=== PATIENT | female | born 1965 | race Caucasian/White ===

== ENCOUNTER → 2018-07-31 08:57 | Outpatient (CLI) | payer BC, SELFPAY ==
--- NOTE | 2018-07-30 19:29 | PCM.HP.BLA ---
History and Physical Date of Admission: 07/31/18 HISTORY AND PHYSICAL - BREAST COMPLAINT ? Nirali Cifuentes 1965 ? ? REFERRING PHYSICIAN: ??David Reza MD ? CHIEF COMPLAINT: ??Right breast microcalcifications ? HPI: The patient is a 52 year old female with a continued finding of an abnormal mammogram. ?The patient had a mammogram ?on July 10, 2018 which demonstrated: ? IMPRESSION: SUSPICIOUS FINDING - BIOPSY SHOULD BE CONSIDERED The multiple regional heterogeneous pleomorphic calcifications in the right breast are suspicious of malignancy. ?A stereotactic biopsy is recommended. The patient has a follow up surgical appointment with Dr. Vega on 07/16/18. Jeffry Guerrier M.D. ? Last year, the patient underwent mammogram of her right breast on July 04, 2017. ?This demonstrated: ? IMPRESSION: SUSPICIOUS FINDING - BIOPSY SHOULD BE CONSIDERED The regional pleomorphic calcifications in the right breast are suspicious of malignancy. ?A stereotactic biopsy is recommended. Luci chapa/chelle:07/04/2017 10:24:52 Food Beverage Attendant: Leda ABRAHAM(Ana)(Magno), [facility] letter sent: Abnormal Mammogram BI-RADS: 4 Suspicious finding - Biopsy should be considered Elevator Supervisor: Chelle Transcribe Date/Time: July ?9:55A Dictated by: LUCI CHEN MD ? The patient was seen for similar concerns 2 years previously. ?At that time, she felt she had undergone enough procedures and did not want a biopsy performed. ? ? The patient underwent mammogram on June 22, 2016 ? IMPRESSION: SUSPICIOUS OF MALIGNANCY The regional pleomorphic calcifications in the right breast are suspicious of malignancy. ?An ultrasound guided biopsy is recommended. Luci chapa/chelle:06/22/2016 09:56:49 Food Beverage Attendant: Millie SAM)(Magno), [facility] letter sent: Abnormal Mammogram BI-RADS: 4 Suspicious abnormality Elevator Supervisor: Chelle Transcribe Date/Time: Jun 22 2016 ?9:21A Dictated by: LUCI CHEN MD This examination was interpreted and the report reviewed and electronically signed by: LUCI CHEN MD on Jun 22 2016 ?9:56AM ?EST Results-Findings * * *Final Report* * * DATE OF EXAM: Jun 22 2016 ?9:50AM ? WRW ??[id number] ?- ?LINUS DIG DIAG CAD UNI ?- RIGHT / PROCEDURE REASON: CALL BACK RGITH ?BREAST /ABNORMAL MAMMOGRAM ? * * * * Physician Interpretation * * * * RESULT: #[id number] - LINUS DIG DIAG CAD UNI UNILATERAL RIGHT DIGITAL DIAGNOSTIC MAMMOGRAM WITH CAD: 06/22/2016 HISTORY: Call Back Right /Abnormal Mammogram. RESULT: TECHNIQUE: ?The study was acquired using full field digital technology and interpreted from soft copy. Current study was also evaluated with a Computer Aided Detection (CAD). Comparison is made to exams dated: ?06/14/2016 mammogram, 06/22/2015 mammogram - [facility], 10/15/2014 mammogram, 10/15/2014 mammogram - [facility], 09/17/2014 mammogram, and 09/10/2014 mammogram - [facility]. The tissue of the right breast is heterogeneously dense. This may lower the sensitivity of mammography. There are regional pleomorphic calcifications in the right breast superior lateral quadrant middle depth. ?These are not significantly changed. No other significant masses or calcifications are seen in the breast. ? Last year-the patient had a mammogram on June 22, 2015 which demonstrated: ? IMPRESSION: SUSPICIOUS OF MALIGNANCY The multiple calcifications in the right breast are at an intermediate suspicion for malignancy. SUMMARY: The results of the imaging and recommendations were discussed with the patient. Patient scheduled for surgical consult with Dr. Vega. Cayetano kaufman/chelle:06/22/2015 10:24:17 Food Beverage Attendant: Yue ABRAHAM(Ana)(Magno), [facility] letter sent: Abnormal Mammogram BI-RADS: 4b Suspicious abnormality - intermediate suspicion of malignancy Elevator Supervisor: PSC Transcribe Date/Time: Jun 22 2015 10:24A Dictated by : CAYETANO CISNEROS DO This examination was interpreted and the report reviewed and electronically signed by: CAYETANO CISNEROS DO On Jun 22 2015 10:24AM ? ? Nirali is a patient I am following for a prior history of left sided breast cancer. ? Nirali presented with a finding of an abnormal mammogram. ?The patient had a mammogram with ultrasound on September 10 which demonstrated: ? IMPRESSION: HIGHLY SUGGESTIVE OF MALIGNANCY - FOLLOW-UP RECOMMENDED The 0.7 cm x 1 cm x 0.6 cm irregular mass in the left breast is highly suggestive of malignancy. An ultrasound guided biopsy is recommended. Luci chapa/chelle:09/10/2014 11:55:01 Food Beverage Attendant: Leda SAM)(Magno), [facility] letter sent: Abnormal Mammogram BI-RADS: 5 Highly suggestive of malignancy Ultrasound BI-RADS: 5 Highly suggestive of malignancy . ? ? ? The patient denies a history of breast masses. ?She does not ?perform a self breast exam routinely. ?She notes no skin changes. ?She denies nipple discharge. ?She notes no axillary masses. ?She notes no family history of breast problems. ?She notes no significant breast trauma or breast difficulties in the past. ? I thought the abnormality that I visualized was in a slightly different more medial location than what was noted on ultrasound in the radiology department. ?I therefore had her return the following day for ultrasound-guided biopsy in the department area I performed an ultrasound-guided core biopsy of the left breast on September 17, 2014. ? ? Pathology returned as: Invasive ductal carcinoma, estrogen receptor positive, progesterone receptor positive ? The patient notes moderate localized bruising since the procedure. ? She underwent an MRI of her breasts. ?This demonstrated: ? IMPRESSION: KNOWN BIOPSY PROVEN MALIGNANCY 1.4 cm biopsy-proven neoplasm in the left breast just medial and inferior to the nipple. An additional concerning area for neoplasm is seen in the lower inner quadrant of the left breast. There is some architectural distortion seen in this region on the MLO view of the left mammogram. I would recommend either biopsy of this region or wide margins during lumpectomy, assuming mastectomy is not in the plans. Pericardial recess or cyst. ? The patient was referred for second look ultrasound versus MRI and planned biopsy of the additional area of concern in the lower inner quadrant of the left breast. ?She underwent these evaluations on October 15. ? She underwent follow-up mammogram and ultrasound. ?The report from [place] demonstrated: ? IMPRESSION: SUSPICIOUS OF MALIGNANCY Biopsy will be performed for the suspicious mass at left 7:00 3CMFN demonstrated on today's second look ultrasound exam. Note that on today's limited mammogram images there are nonspecific regional calcifications in the upper outer left breast. These were described in the 09/10/2014 diagnostic mammogram with recommendation for left breast stereotactic biopsy for evaluation of the calcifications. For comparison, review of the right breast was performed (screening mammogram dated 09/01/2014), and similar appearing regional calcifications are noted on the right. In summary, given the now known malignancy in the left breast, if the patient desires breast conservation then a left breast stereotactic biopsy would be recommended. As there are similar appearing calcifications in the right breast, and with known contralateral malignancy, right breast stereotactic biopsy would also be recommended. Findings/images were reviewed with the patient at the time of her biopsy Today. ? Pathology demonstrated: ? FINAL DIAGNOSIS Breast, Left, 7 o'clock, 3 cm from Nipple, Ultrasound-Guided Core Biopsy (A): - Invasive ductal carcinoma, nuclear grade 1. - Ductal carcinoma in situ (DCIS), low grade, cribriform type with associated calcifications. COMMENT Results of ancillary immunohistochemical testing (ER/WA/Her-2) will follow in an addendum. ? ? At that?point in time, the patient is somewhat confused and?overwhelmed by the variety of findings and the multiple studies she has undergone. ?We discussed the concern of the microcalcifications in her left and right breasts. ?From my standpoint, the initial report did not recommend right stereotactic biopsy for those microcalcifications which to me seemed somewhat more vague. ?Additionally, MRI did not demonstrate areas of abnormality at either site of those right or left microcalcifications. ?If we were considering lumpectomy of the left breast, I would recommend stereotactic biopsy of the left breast. ?The patient is planning for left-sided mastectomy. ?Right breast microcalcifications again did not appear significantly clustered to me. ?We discussed biopsy versus observation versus referral for bilateral mastectomy. ? We extensively discussed her diagnosis and at the last visit discussed her surgical options including breast conservation surgical procedures, mastectomy without reconstruction and mastectomy with reconstruction. ?The patient has elected to undergo a left side mastectomy with sentinel lymph node biopsy with possible axillary dissection. ?She does not wish to undergo right sided biopsy or contralateral mastectomy at this time. ? ?I performed a left mastectomy with sentinel lymph node biopsy on October 30. ?The pathology demonstrated negative frozen sections on the sentinel lymph node biopsy. The pathology demonstrated invasive well differentiated ductal carcinoma. The tumor's greatest dimension was 1.5 x 1.5 x 1.2cm and 1.0 x 0.5 x 0.5 cm. Surgical margins were free of disease. 2 out of 2 lymph nodes were negative for metastatic disease. The estrogen receptors were positive, the progesterone receptors were positive, the Gya4Bhq receptors were positive. Pathologic stage was T1 N0 M0.?? ? Again, for the right breast, we discussed with the patient observation versus biopsy. ?The fact that her MRI demonstrated no abnormalities in the right side and overall her mammogram seems somewhat stable, the patient again would prefer not to undergo biopsy. ? ? ? PAST?MEDICAL?HISTORY PAST MEDICAL HISTORY Diagnosis Date ? Breast cancer (HCC) ? ? left breast ? Closed fracture of navicular (scaphoid) bone of wrist 1999 ? Wrist fracture ORIF left wrist ? H/O tubal ligation 1993 ? History of total hip replacement 2010 ? left ? PAST?SURGICAL?HISTORY PAST SURGICAL HISTORY Procedure Laterality Date ? MASTECTOMY, PARTIAL ? 10/30/14 ? Left - with neg SLNBx ? REPAIR WRIST FRACTURE ? 1999 ? TOTAL HIP REPLACEMENT ? 2009? ? left hip ? TUBAL LIGATION HX ? 1993 ? ? ? CURRENT?MEDICATIONS ? Current Outpatient Medications: MULTI-VITAMIN ORAL Take by mouth. Disp: Rfl: tamoxifen (NOLVADEX) 20 mg tablet Take 1 tablet (20 mg) by mouth once daily. Disp: 30 tablet Rfl: 11 ergocalciferol, vitamin D2, (VITAMIN D) 50,000 unit capsule TAKE ONE CAPSULE BY MOUTH ONCE A WEEK Disp: 12 capsule Rfl: 3 cyanocobalamin (VITAMIN B-12) 1,000 mcg tab Take 1,000 mcg by mouth once daily. Disp: Rfl: ? No current facility-administered medications for this visit. ? ALLERGIES: Lactose; Seasonal Allergies ? PERSONAL HISTORY: SOCIAL?HISTORY Social History ??Socioeconomic History ?Marital status: ?Spouse name: Ayush ?Number of children: 2 ?Years of education: Not on file ?Highest education level: Not on file ??Social Needs ?Financial resource strain: Not on file ?Food insecurity - worry: Not on file ?Food insecurity - inability: Not on file ?Transportation needs - medical: Not on file ?Transportation needs - non-medical: Not on file ??Occupational History ?Not on file ??Tobacco Use ?Smoking status: Current Every Day Smoker ?Packs/day: 1.50 ?Years: 35.00 ?Pack years: 52.5 ?Types: Cigarettes ?Start date: 06/29/1981 ?Smokeless tobacco: Never Used ??Substance and Sexual Activity ?Alcohol use: Yes ?Comment: rare ?Drug use: No ?Sexual activity: Yes ?Partners: Male ? control/protection: Tubal Ligation ??Other Topics ?Concerns: ?Not on file ??Social History Narrative ?Not on file ?? ? FAMILY HISTORY: FAMILY?HISTORY FAMILY HISTORY Problem Relation Age of Onset ? Breast Cancer Mother 60 ? Hypertension Mother ? ? Allergies Mother ? ? Diabetes Mother ? ? Heart Father ? ? Lipids Father ? ? Allergies Father ? ? Colon Cancer Maternal Grandmother ?dx 80's ? Breast Cancer Maternal Aunt ?dx 60's ? Colon Cancer Maternal Uncle ?dx 60's ? ? REVIEW OF SYMPTOMS: ??The review of systems data was entered by the nurse and reviewed by me ? There are no exam notes on file for this visit. ? ? PHYSICAL EXAMINATION: ? General: ?The patient is 52 year old female, well nourished, well hydrated in no acute distress. ?The patient is oriented to time, place, and person. ? VITALS: Blood pressure 138/78, pulse 96, last menstrual period 06/18/2014.?There is no height or weight on file to calculate BMI.? ? HEENT: ?Normal cephalic, ataumatic, pupils are equally round, sclera are anicteric, mucous membranes are moist, oropharynx is clear. ?Neck has no masses, asymmetry or lymphadenopathy. ?Thyroid is unremarkable. ? Respiratory: ?Clear to auscultation and percussion. ?Normal respiratory excursion and pattern. ? Cardiac: ?Examination is regular rate and rhythm. ? Abdominal exam: ?Soft, nontender, ?with no palpable masses. ?No hepatosplenomegaly. ?No palpable hernias. ? Rectal exam: ?exam deferred Extremities: ?no clubbing, cyanosis or edema. ?No adenopathy. ? Breast: ?Visual inspection reveals no retractions, nipple inversion, or skin changes. ?Palpation of the right breast reveals no dominant or suspicious masses. ?The left breast is surgically absent. ?Axillary exam demonstrates no suspicious masses in either the left or right axilla. ?There is no nipple discharge expressed from either the left or right breast. ? LABORATORY VALUES: As Noted ? RADIOLOGIC STUDIES: ?As Noted ? Assessment ? IMPRESSION: Persistent right breast microcalcifications ? PLAN: ?I plan to perform a stereotactic biopsy of the right breast. ?The planned surgical procedure was discussed extensively with the patient. ?The risks, benefits, anticipated outcomes and possible complications were mentioned. ?My staff has also explained the procedure in understandable terms and the patient was given the option to take printed material concerning the planned procedure. ?The patient had the opportunity to ask questions concerning the planned procedure. ?The patient freely consents to the planned procedure. ? The patient does agree to have stereotactic biopsy at this time. ? Diagnoses: (R92.8) Abnormal finding on breast imaging ?(primary encounter diagnosis) ? My findings have been communicated to Dr. Reza via shared medical record. ?This note will be forwarded to Dr. Marcin Ny MD. ? Return to Clinic: The patient is instructed to follow-up with me after the testing has been completed. ? Ramiro Vega MD
--- NOTE | 2018-07-31 | IMM_PTH ---
PATIENT: PHOEBE ODELL LOC: [facility] U#:[id number] AGE/SX: 59/F ROOM: RE07/31/[address]: Dr. Ramiro Vega MD : 1965 BED: DIS: SPEC #: [id number] RECD: 08/01/18 10:37 STATUS: DIVYA REQ #: [id number] DENG: 07/31/18 00:[address]: Ramiro Vega DEPT: IMMUNOHISTOCHEMISTRY RECD BY: Chitra Hooker ENTERED: 08/01/18 10:42 SP TYPE: IMMUNO OTHR DR: Dr. Marcin Ny MD Tissues: Right breast, NOS Procedures: SMA (add) CALPONIN-1 (add) Pankeratin (initial) P40 (add) PHYSICIAN & INSTITUTION [place] [id number] SPECIMEN INFORMATION: Tissue Source: Right breast Clinical Info: Right breast calcifications upper outer middle depth Specimen Number: [id number] #1 CPT code: 78060, 25015 x3 METHODOLOGY: Deparaffinized sections of prefer/formalin-fixed tissue or PAP/DQ stained slides are incubated with monoclonal/polyclonal antibodies/oligonucleotide probes. Localization is made via biotin free immunoperoxidase method. Appropriate controls are performed and reacted as expected. Results on target cell population are indicated in the following table: RESULTS: ANTIBODY / CLONE RESULT P40 (BC28) positive Actin (1A4) positive Calponin-1 (OH688H) positive AE1-3 (AE1/AE3/PCK26) positive These tests were developed and their performance characteristics determined by [facility]. They may not have been cleared or approved by the U.S. Food and Drug Administration. The FDA has determined that such clearance or approval is not necessary. INTERPRETATION: Right breast, stereotactic core biopsy: Consistent with sclerosing adenosis. AM:sandeep 08/02/18
--- NOTE | 2018-07-31 09:30 | BRBX_PTH ---
PATIENT: PHOEBE ODELL LOC: [facility] U#:[id number] AGE/SX: 59/F ROOM: RE07/31/[address]: Dr. Ramiro Vega MD : 1965 BED: DIS: SPEC #: [id number] RECD: 07/31/18 10:11 STATUS: DIVYA ASHTYN #: [id number] DENG: 07/31/18 09:[address]: Ramiro Vega DEPT: SURGICAL PATHOLOGY RECD BY: Lam Caldwell ENTERED: 07/31/18 10:53 SP TYPE: BREAST BX OTHR DR: Dr. Marcin Ny MD Tissues: Right breast, NOS Procedures: Surgery Specimen Level IV HEADER OPERATION: Right breast stereotactic biopsy PRE-OP DIAGNOSIS: Right breast calcifications upper outer middle depth TISSUE SUBMITTED: Right breast core tissue FIXATION TIME: 10 hours MICROSCOPIC DIAGNOSIS Right upper outer middle breast, stereotactic needle core biopsy: Sclerosing adenosis and associated microcalcifications. Fibrocystic change with associated microcalcifications. Focal intraductal hyperplasia without atypia. No evidence of malignancy. AM:sandeep 08/01/18 COMMENT Immunohistochemistry ([id number]) supports the above diagnosis. MICROSCOPIC DESCRIPTION Slides are reviewed. GROSS DESCRIPTION Received in fixative is one container labeled with the patient's name and designated right breast core tissue. The specimen consists of multiple irregular fragments of alberto-yellow to pink soft tissue that in aggregate measure 2.5 x 2.5 x 0.5 cm. The specimen is submitted in six cassettes. / CE:sandeep 07/31/18 TC:5 CPT: 96179
--- NOTE | 2018-07-31 10:50 | PCM.OPRPT ---
Report of Operation Date of Procedure: 07/31/18 Pre-Operative Diagnosis: right breast microcalcifications Post-Operative Diagnosis: right breast microcalcifications-successful stereotactic biopsy Surgery/Procedure Performed:: right breast stereotactic biopsy with vacuum-assisted core needle biopsy-specimen radiograph and gel marker clip placement rubber press operator: None Type of Anesthesia:: Local Specimen's removed: right breast Description of Procedure: The patient was brought to the stereotactic suite and informed of the plan course of events. The right breast was positioned in the CC approach on the Horner stereotactic table. Mammographic image demonstrated the area of abnormality to be located in the center of the radiograph. Stereotactic images were then obtained which demonstrated good positioning of the abnormality for biopsy with good stroke [place]ano parameters. The breast was cleaned with Betadine area did one percent lidocaine was used to anesthetize the skin and a small stab incision made. An 8-gauge mammotome needle was placed into the pre-fire position. Stereotactic images demonstrated good positioning around the planned biopsy site. Local anesthetic injected deeply in the breast. The needle was deployed. Post deployment images demonstrated good positioning of the planned biopsy site. Multiple vacuum-assisted samples were obtained and otsolg-rpo-kaqis fashion. Specimen radiograph demonstrated micro-calcifications in the sample. A gel marker clip was deployed. Post biopsy images demonstrated good position of the clip relative the biopsy cavity. The breast was removed from compression. Steri-Strips and a dressing applied. Post procedure mammogram images were obtained.
== END ==
LOC: BIRAD 08:57
PROVIDERS: Family Provider Family Medicine; PCP Family Medicine; Referring Provider Surgery; Visit Provider Surgery
DX: N60.21 Fibroadenosis of right breast (principal); N60.91 Unspecified benign mammary dysplasia of right breast; F17.210 Nicotine dependence, cigarettes, uncomplicated; Z96.642 Presence of left artificial hip joint; Z85.3 Personal history of malignant neoplasm of breast; Z90.12 Acquired absence of left breast and nipple; Z98.51 Tubal ligation status
CPT/HCPCS: 19081; 88305; 88341; 88342; J7050; A4648

== ENCOUNTER 2023-05-28 11:04 | Emergency (ER) | payer BC, SELFPAY ==
[2023-05-28] VITALS (18 sets, daily range): BP systolic 74–115; BP diastolic 50–68; PULSE 62–97; RESP 14–18; TEMP 37.1–37.9; O2SAT 94–100; BMI 18.3
--- NOTE | 2023-05-28 11:55 | CT_ITS ---
STUDY: CT ABDOMEN AND PELVIS WITH CONTRAST REASON FOR EXAM: Female, 57 years old. 4 day history of right lower quadrant pain. Diarrhea. RADIATION DOSAGE (If Supplied By Facility): CTDIvol = ( 10.61 ) mGy, DLP = ( 211.21 ) mGycm TECHNIQUE: Transaxial images were obtained from the dome of the diaphragm to the symphysis pubis without oral contrast. IV 100mL Isovue-300 was administered. Sagittal and coronal images were reconstructed. Individualized dose optimization techniques were used for this CT. COMPARISON: None. FINDINGS: The visualized lung bases are unremarkable. The visualized portions of the heart are within normal limits. Normal liver. There is a solitary gallstone. This measures 6.4 mm in diameter. Normal spleen. Normal pancreas. Normal bilateral adrenal glands. Punctate calculus in the lower pole calyx of the right kidney. 1 cm cyst in the mid lateral aspect of the right kidney. Normal left kidney. Normal visualized stomach. Normal small intestine. Normal colon. The appendix is visualized and appears normal. There is diffuse atherosclerotic calcification of the abdominal aorta and its major visceral branches, without a demonstrated aneurysm. Endoluminal stent graft is seen in the distal abdominal aorta and the proximal portions of both common iliac arteries. Normal inferior vena cava. Normal retroperitoneum. Normal urinary bladder. Normal abdominal wall. Mild disc space narrowing at the L5-S1 level with spondylosis. Beam hardening artifact in the pelvis due to the prosthetic left hip limits evaluation of the pelvic structures. CT/Abdomen/Pelvis W IV Cont ONLY IMPRESSION: Punctate calculus in the lower pole calyx of the right kidney. Small right renal cyst. Solitary gallstone. Prior endoluminal stent grafting of the distal abdominal aorta and the lateral common iliac arteries. Electronically Signed: Dalton Braun MD at 13:22 EDT ,
--- NOTE | 2023-05-28 11:55 | ED.VIS.GI ---
HPI HPI - GI History of Present Illness Chief Complaint: Abd Pain Narrative Narrative: 57-year-old female presents with her boyfriend because of right lower quadrant abdominal pain and diarrhea that she has had for 5 days. She states that she has not had fever or chills, but started having diarrhea approximately 5 days ago. Whenever she would eat or drink anything, she would have an episode of diarrhea. While she might be slightly nauseated at times, she has not had any vomiting. Water was the only thing that would stay in her, but when she would eat or drink other liquids including orange juice, she would have diarrhea. No prior abdominal surgeries, but she went to urgent care today because she had continued diarrhea and right lower quadrant pain so they sent her for evaluation with concern for appendicitis. She denies any exacerbating or alleviating factors but states now that she stopped drinking other liquids, her diarrhea has improved. She has not had any blood in her stool. [facility] Medical History Breast cancer Breast cancer Hypercholesterolemia Hypertension Home Medications cyanocobalamin (vitamin B-12) 2,000 mcg tablet 2,000 mcg PO DAILY 10/29/14 [History Last Taken Unknown] hydrocodone-acetaminophen 5-325mg 5mg-325mg 1 tab PO Q4H PRN PRN PAIN ##30 10/31/14 [Rx Last Taken Unknown] cephalexin 500 mg capsule 500 mg PO Q12 #14 CAPSULES 05/28/23 [Rx Last Taken Unknown] Allergy/AdvReac Type Severity Reaction Status Date / Time No Known Allergies Allergy Verified 05/28/23 11:07 Surgical History H/O mastectomy Social History Smoking Status: Former smoker ROS ROS ED ROS Narrative Constitutional: No fever, no chills. HEENT: No sore throat. No neck pain. No loss of vision. No rhinorrhea. Cardiovascular: No chest pain. No palpitations. No pedal edema. Respiratory: No cough, no shortness of breath. Abdominal: Right lower quadrant abdominal pain. Intermittent nausea. No vomiting. 5 days of nonbloody diarrhea. Genitourinary: No dysuria. No hematuria. Musculoskeletal: No myalgias. No arthralgias. Neurologic: No headaches. No dizziness. No lightheadedness. Skin: No rash. No change in color. Psychiatric: No depression. No anxiety. EXAM Physical Exam Narrative Exam Narrative: Afebrile. Vital signs noted. HEENT: Normocephalic. Atraumatic. PERRL, EOMI. Neck soft and supple. No point tenderness or step off. Cardiovascular: Regular rate and rhythm. No murmurs, rubs, or gallops appreciated. Respiratory: No tachypnea. Lungs clear to auscultation bilaterally. Gastrointestinal: Abdomen soft, mild tenderness right lower quadrant with normoactive bowel sounds. No rebound or guarding. No peritoneal signs. Neurological: Awake. Alert. Nonfocal, nonlateralizing. Skin: No rash. Normal color. No pallor. Musculoskeletal: No pedal edema. Full range of motion extremities. Const Vital Signs: 05/28/23 11:05 05/28/23 11:54 05/28/23 11:45 Temperature 98.7 F Temperature Source Temporal Pulse Rate 97 88 Respiratory Rate 16 16 Blood Pressure 92/68 99/57 L 74/52 L Blood Pressure Mean 76 71 60 Pulse Ox 100 96 97 Oxygen Delivery Method Room Air Room Air 05/28/23 12:00 05/28/23 12:15 05/28/23 12:30 Temperature Temperature Source Pulse Rate Respiratory Rate Blood Pressure 93/56 L 115/56 L 105/60 Blood Pressure Mean 67 69 74 Pulse Ox 95 95 Oxygen Delivery Method 05/28/23 12:36 05/28/23 12:45 05/28/23 13:00 Temperature Temperature Source Pulse Rate Respiratory Rate Blood Pressure 96/55 L 99/57 L Blood Pressure Mean 67 71 Pulse Ox 97 Oxygen Delivery Method MDM MDM MDM Narrative Medical decision making narrative: Concern is for dehydration from her diarrhea and electrolyte imbalance including hypokalemia. Regarding her pain, she may have more of a colitis versus diverticulitis versus acute appendicitis. Also in the differential would be ovarian pathology, but the history and physical does not support this. She is postmenopausal so I do not feel that test is indicated. She has a soft blood pressure of 92/68 so she will be bolused normal saline. CBC, CMP will be obtained as well as urinalysis and I do feel CT imaging with IV contrast is indicated in order to rule out acute appendicitis. I reviewed her laboratory work and she has a normal white count of 8.0, hemoglobin normal at 12.5, hematocrit 37.5, platelet count normal at 175. Her electrolyte panel was reviewed and it is consistent with dehydration with a sodium of 130 and a chloride of 95. Potassium is normal at 3.9. BUN of 14 and creatinine slightly elevated at 1.13. Her glucose is appropriately elevated at 108 with a normal anion gap of 6. LFTs are slightly elevated which I think is nonspecific at 91 AST and ALT of 95. Alk phos is normal at 110. Urinalysis consistent with cystitis with WBC count greater than 100 and positive nitrates. She was started on Rocephin 1 g intravenously. Additionally, I reviewed the CT report/radiology report of the abdomen and pelvis with IV contrast and the appendix is visualized without evidence of inflammation. Otherwise, no acute process. She has a fluctuating blood pressure/soft blood pressure, but RN reports the cuff may have been too large. She was able to ambulate to the bathroom, and currently has a systolic blood pressure of 112. I did add a lactic acid which is normal at 1.1. As her urine culture is pending. She is feeling improved with IV fluids and Rocephin. Through shared decision making, and after I had offered her observation, she would like to be discharged home which I find acceptable. I do not feel that she requires inpatient IV antibiotics. She was written a prescription for Keflex to take twice a day for the next week while her urine culture is pending. Disposition is discharged in stable condition. History & Record Review Discussion w/independent historian: Patient and Significant other Additional record(s) reviewed:: Prior ED visit Lab Data Attestation: I reviewed the patient's lab results. Labs: Laboratory Results - last 24 hr 05/28/23 05/28/23 05/28/23 11:25 12:10 13:05 WBC 8.0 RBC 3.88 L Hgb 12.5 Hct 37.5 MCV 96.6 MCH 32.2 H MCHC 33.3 RDW Std Deviation 48.0 H RDW Coeff of [place] 13.4 Plt Count 175 MPV 9.5 Immature Gran % (Auto) 0.300 Neut % (Auto) 72.4 H Lymph % (Auto) 10.5 L [place] % (Auto) 16.4 H Eos % (Auto) 0.0 Baso % (Auto) 0.4 Absolute Neuts (auto) 5.8 Absolute Lymphs (auto) 0.84 Nucleated RBC % 0 Sodium 130 L Potassium 3.9 Chloride 95 L Carbon Dioxide 29.0 Anion Gap 6 BUN 14 Creatinine 1.13 H Estim Creat Clear Calc 40.56 Est GFR (MDRD) Af Amer 64 Est GFR (MDRD) Non-Af 53 L BUN/Creatinine Ratio 12.4 Glucose 108 H Lactic Acid 1.1 Calcium 9.5 Total Bilirubin 0.30 AST 91 H ALT 95 H Alkaline Phosphatase 110 Total Protein 7.8 Albumin 3.2 Globulin 4.6 H Albumin/Globulin Ratio 0.7 L Urine Color Yellow Urine Clarity Sl. Cloudy Urine pH 6.0 Ur Specific [place] 1.010 Urine Protein 100 H Urine Glucose (UA) Normal Urine Ketones 5 H Urine Occult Blood 250 H Urine Nitrite Positive H Urine Bilirubin Negative Urine Urobilinogen Normal Ur Leukocyte Esterase 500 H Urine RBC 0 SEEN Urine WBC >100 SEEN Ur Squamous Epith Cells 0-5 SEEN Urine Bacteria 2+ Urine Mucus 0 SEEN Radiography Diagnostic Testing: Clinical Impression(s) from Imaging Studies Abdomen/Pelvis CT 05/28/23 11:55 IMPRESSION: Punctate calculus in the lower pole calyx of the right kidney. Small right renal cyst. Solitary gallstone. Prior endoluminal stent grafting of the distal abdominal aorta and the lateral common iliac arteries. Electronically Signed: Dalton Braun MD at 13:22 EDT Reading Location ID and State: [facility] / [place] , Service support , Discharge Plan Triage Chief Complaint: Abd Pain ED Provider: Charlie Lock Dx/Rx/DC Orders Clinical Impression: Abdominal pain, RLQ, UTI (urinary tract infection), Hyponatremia, Dehydration Instructions: ED Abdominal Pain Unkn Cause Fem, ED Dehydration (Adult), ED Hyponatremia, ED Cystitis Female Adult Prescriptions: New cephalexin 500 mg capsule 500 mg PO Q12 Qty: 14 0RF No Action cyanocobalamin (vitamin B-12) 2,000 MCG tablet 2,000 mcg PO DAILY Patient Comments: VIT B SUPPLEMENT hydrocodone-acetaminophen 1 TABLET tablet 1 tab PO Q4H PRN PRN (Reason: PAIN) Qty: 30 0RF Patient Comments: NARCOTIC PAIN MEDICATION Primary Care Provider: Marcin Ny Referrals: Marcin Ny MD [Primary Care Provider] - 3-5 Days if not improving Activity Restrictions/Additional Instructions: Return with increased pain, new or worsening symptoms. Antibiotics as directed. Disposition Disposition: Home, Self Care
[2023-05-28] MEDS: 0.9% Normal Saline (1000mL) 1,000 ML 1000 ML IV (12:01)
[2023-05-28 12:15] LABS: Absolute Lymphocyte Count 0.84 X10^3/uL (0.83-4.51); Absolute Neutrophil Count 5.8 X10^3/uL (2.0-7.7); Basophil# 0.03 X10^3/uL; Basophil% 0.4 % (0-1); Hematocrit 37.5 % (37-47); Hemoglobin 12.5 g/dL (12.0-15.0); Lymphocyte # 0.84 X10^3/ul (0.83-4.51); Lymphocyte % 10.5 % (19-41); Mean Corp Hgb Conc 33.3 g/dL (32-36); Mean Corpuscular Hgb 32.2 pg (27.0-32.0); Mean Corpuscular Volume 96.6 fL (81-99); Mean Platelet Vol. 9.5 fl (6.2-12.0); Monocyte# 1.31 X10^3/uL; Monocyte% 16.4 % (0-10); NRBC Flagged by Analyzer 0 % (0-5); Neutrophil # 5.79 X10^3/uL (2.7-7.7); Neutrophil % 72.4 % (47-70); Platelet Count 175 K/mm3 (150-450); RBC Distribution Width CV 13.4 % (11.6-14.6); Red Blood Count 3.88 M/mm3 (4.2-5.4)
[2023-05-28 12:20] LABS: Mucous, Urine 0 SEEN /hpf (<or=2+); Red Blood Cells-Urine 0 SEEN /hpf (0-5)
[2023-05-28 12:26] LABS: Color, Urine Yellow (Yellow); Glucose, Dipstick Normal (Normal); Ketone-Dipstick 5 mg/dl (Negative); Leukocyte Esterase-Dipstick 500 /ul (Negative); Nitrite-Dipstick Positive (Negative); Occult Blood-Urine 250 /ul (Negative); Protein-Dipstick 100 mg/dl (Negative); Urine Bilirubin Dipstick Negative (Negative); Urine Clarity Sl. Cloudy (Clear); Urine Urobilinogen Normal (Normal)
[2023-05-28 12:32] LABS: ALB/GLOB Ratio 0.7 RATIO (0.9-2.4); AST(SGOT) 91 U/L (15-37); Alanine Aminotransfer ALT/SGPT 95 U/L (13-56); Albumin, Serum 3.2 g/dL (3.2-5.0); Alkaline Phosphatase 110 U/L (45-117); Anion Gap 6 (5-15); BUN 14 mg/dL (7-18); BUN/Creat Ratio 12.4 RATIO (10-20); Calcium,Total 9.5 mg/dL (8.5-10.1); Chloride 95 mmol/L (98-107); Creatinine, Serum 1.13 mg/dL (0.55-1.02); EST Glomerular Filtration Rate 53 mL/min (>60); Est Glom Filt Rate - Afr Amer 64 mL/min (>60); Estimated Creatinine Clearance 40.56 ml/min; Globulin 4.6 g/dL (2.2-4.2); Glucose 108 mg/dL (74-106); Potassium 3.9 mmol/L (3.5-5.1); Protein, Total 7.8 g/dL (6.4-8.2); Sodium Level 130 mmol/L (136-145)
[2023-05-28 12:35] LABS: White Blood Cells >100 SEEN /hpf (0-5)
[2023-05-28 12:36] LABS: Bacteria 2+ /hpf (None Seen); Squamous Epithelial Cells - UA 0-5 SEEN /hpf (5-10)
[2023-05-28] MEDS: Ceftriaxone 1 GM/50 ML BAG IV (13:33)
[2023-05-28 13:52] LABS: Lactic Acid 1.1 mmol/L (0.4-1.9)
[2023-05-28] MEDS: 0.9% Normal Saline (1000mL) 1,000 ML 999 ML IV (15:31)
== END 2023-05-28 16:15 | disposition home or self-care (01) ==
PROVIDERS: Emergency Provider Emergency Medicine; PCP Family Medicine; Visit Provider Emergency Medicine
DX: N39.0 Urinary tract infection, site not specified (principal); R19.7 Diarrhea, unspecified; E87.1 Hypo-osmolality and hyponatremia; R10.31 Right lower quadrant pain; E86.0 Dehydration; E78.00 Pure hypercholesterolemia, unspecified; I10 Essential (primary) hypertension; Z78.0 Asymptomatic menopausal state; Z87.891 Personal history of nicotine dependence
CPT/HCPCS: 36415; 74177; 80053; 81001; 83605; 85025; 87040; 87077; 87086; 87088; 87186; 96361; 96365; 96366; 99284; J7030; Q9967

== ENCOUNTER 2023-08-01 12:20 | Emergency (ER) | payer BC, SELFPAY ==
[2023-08-01 12:21] VITALS: BP 139/88; PULSE 115; RESP 18; TEMP 37.4; O2SAT 97; BMI 17.3
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
[2023-08-01] MEDS: 0.9% Normal Saline (1000mL) 1,000 ML 1000 ML IV (12:56)
--- NOTE | 2023-08-01 13:03 | RAD_ITS ---
STUDY: X-RAY CHEST REASON FOR EXAM: Female, 58 years old. Weakness TECHNIQUE: PA and lateral views of the chest. COMPARISON: None. FINDINGS: EKG electrodes are seen. There is hyperinflation of the lungs consistent with chronic obstructive lung disease (COPD). Scattered calcified granulomas. There is no demonstrated pleural abnormality. Normal size heart. Normal mediastinum and angelita. Normal visualized pulmonary arteries. There is atherosclerotic calcification of the aortic arch with tortuosity. There are mild degenerative changes of the visualized thoracic spine. Normal visualized ribs, clavicles, and shoulders. There is no demonstrated abnormality of the visualized soft tissue structures of the upper abdomen. RAD/Chest PA and Lateral IMPRESSION: Hyperinflation. Scattered calcified granulomas. Electronically Signed: Dalton Braun MD at 13:18 EDT ,
[2023-08-01 13:10] LABS: Absolute Lymphocyte Count 0.79 X10^3/uL (0.83-4.51); Absolute Neutrophil Count 7.6 X10^3/uL (2.0-7.7); Basophil# 0.02 X10^3/uL; Basophil% 0.2 % (0-1); Hematocrit 31.3 % (37-47); Hemoglobin 10.4 g/dL (12.0-15.0); Lymphocyte # 0.79 X10^3/ul (0.83-4.51); Lymphocyte % 8.2 % (19-41); Mean Corp Hgb Conc 33.2 g/dL (32-36); Mean Corpuscular Hgb 31.9 pg (27.0-32.0); Mean Platelet Vol. 8.8 fl (6.2-12.0); Monocyte# 1.11 X10^3/uL; Monocyte% 11.6 % (0-10); NRBC Flagged by Analyzer 0 % (0-5); Neutrophil # 7.62 X10^3/uL (2.7-7.7); Neutrophil % 79.6 % (47-70); Platelet Count 231 K/mm3 (150-450); RBC Distribution Width SD 49.9 fl (35.1-43.9); Red Blood Count 3.26 M/mm3 (4.2-5.4); White Blood Count 9.6 K/mm3 (4.4-11.0)
[2023-08-01 13:22] LABS: Anion Gap 7 (5-15); BUN 15 mg/dL (7-18); BUN/Creat Ratio 15.3 RATIO (10-20); Calcium,Total 9.2 mg/dL (8.5-10.1); Chloride 98 mmol/L (98-107); Creatinine, Serum 0.98 mg/dL (0.55-1.02); EST Glomerular Filtration Rate 63 mL/min (>60); Est Glom Filt Rate - Afr Amer 76 mL/min (>60); Estimated Creatinine Clearance 43.42 ml/min; Glucose 113 mg/dL (74-106); Potassium 3.7 mmol/L (3.5-5.1); Sodium Level 130 mmol/L (136-145)
[2023-08-01 14:20] VITALS: BP 106/71; PULSE 108; RESP 20; O2SAT 98
[2023-08-01 14:26] LABS: Mucous, Urine 0 SEEN /hpf (<or=2+)
[2023-08-01 14:34] LABS: Color, Urine Yellow (Yellow); Glucose, Dipstick Normal (Normal); Ketone-Dipstick Negative (Negative); Leukocyte Esterase-Dipstick 25 /ul (Negative); Nitrite-Dipstick Positive (Negative); Occult Blood-Urine 150 /ul (Negative); Protein-Dipstick 30 mg/dl (Negative); Urine Bilirubin Dipstick Negative (Negative); Urine Clarity Sl. Cloudy (Clear); Urine Urobilinogen Normal (Normal); Urine pH 6.5 (5.0 - 8.0)
[2023-08-01 14:40] LABS: Bacteria 2+ /hpf (None Seen); Red Blood Cells-Urine 10-25 SEEN /hpf (0-5); Squamous Epithelial Cells - UA 0-5 SEEN /hpf (5-10); White Blood Cells 0-5 SEEN /hpf (0-5)
--- NOTE | 2023-08-01 15:03 | EKG12_ITS ---
Test Reason : GENERAL Blood Pressure : / mmHG Vent. Rate : 101 BPM Atrial Rate : 101 BPM P-R Int : 118 ms QRS Dur : 082 ms QT Int : 326 ms P-R-T Axes : 077 082 064 degrees QTc Int : 422 ms Sinus tachycardia Otherwise normal ECG Confirmed by Ananth Donaldson ([id number]), photography editor RICCARDO BETTENCOURT ([id number]) on 08/06/2023 1:13:08 PM Referred By: Confirmed By:Ananth Donaldson
--- NOTE | 2023-08-01 15:03 | CT_ITS ---
STUDY: CT BRAIN WITHOUT CONTRAST REASON FOR EXAM: Female, 58 years old. Syncope RADIATION DOSAGE (If Supplied By Facility): CTDIvol = ( 44.99 ) mGy, DLP = ( 745.49 ) mGycm TECHNIQUE: Transaxial CT imaging of the brain was performed without administration of intravenous contrast material. Individualized dose optimization techniques were used for this CT. COMPARISON: No relevant priors. FINDINGS: Normal soft tissue structures. Normal calvarium. Normal size ventricles and extra-axial spaces for the patient''s age. Normal white matter tracts of the cerebral hemispheres. There are small punctate calcifications of the basal ganglia which are seen in the aging brain as a normal variant. Normal brainstem. Normal cerebellum. There is no intracranial hemorrhage. There are no findings of an acute ischemic infarction. Normal visualized paranasal sinuses. CT/Brain/Head without Contrast IMPRESSION: No acute abnormality is seen. Electronically Signed: Dalton Braun MD at 15:42 EDT ,
[2023-08-01 16:00] VITALS: BP 107/61; PULSE 70; RESP 14; O2SAT 98
[2023-08-01 16:07] VITALS: BP 107/61; PULSE 70; RESP 14; TEMP 36.6; O2SAT 98
== END 2023-08-01 16:08 | disposition home or self-care (01) ==
PROVIDERS: Emergency Provider Emergency Medicine; PCP Family Medicine; Visit Provider Emergency Medicine
DX: R55 Syncope and collapse (principal); R53.1 Weakness; Z11.52 Encounter for screening for COVID-19; R50.9 Fever, unspecified; E78.00 Pure hypercholesterolemia, unspecified; I10 Essential (primary) hypertension; Z79.899 Other long term (current) drug therapy; Z87.891 Personal history of nicotine dependence
CPT/HCPCS: 70450; 71046; 80048; 81001; 83605; 85025; 87086; 87088; 87186; 87631; 93005; 96360; 99284; J7030